=== PATIENT | male | born 1965 | race African-American/Black ===

== ENCOUNTER 2018-06-12 08:19 | Inpatient (IN) | payer OTHER ==
[~2018-06-12] VITALS: Ht 182.9 cm; Wt 98.2 kg
--- NOTE | ~2018-06-12 | EKG ---
[place], [place] ELECTROCARDIOGRAM REPORT NAME: SAVANNA PEREZ UNIT #: [id number] ROOM: 518 DOCTOR: TAMIR DRAFT REPORT BIRTHDATE: [birth year] [facility] Test Date: 2018-06-12 Test Time: 12:14:41 Pat Name: SAVANNA PEREZ Department: Room: 518 1 Gender: M Nutrition Specialist: : [id number] Requested By: JUAN JOSE COLE Order Number: [id number] Reading MD: Patricia Vital MD Measurements Intervals Nesbit Rate: 50 P: 48 [place]: 182 QRS: 69 QRSD: 85 T: 61 QT: 438 QTc: 400 Interpretive Statements Sinus rhythm Baseline wander in lead(s) V1 Electronically Signed On 06-14-2018 11:03:56 PDT by Patricia Vital MD CM:EKGRPT:ELECTROCARDIOGRAM REPORT [id number] JUAN JOSE SULTANA DRAFT REPORT JUAN JOSE COLE DO
[2018-06-12 09:27] LABS: BASO % 0.5 % (0.0-1.0); EOS # 0.1 10*3/uL (0.0-0.4); EOS % 1.3 % (1.0-4.0); HEMATOCRIT 47.4 % (42.0-52.0); HEMOGLOBIN 14.9 g/dl (14.0-18.0); LYMPH # 2.9 10*3/uL (1.3-4.4); LYMPH % 46.8 % (27.0-41.0); MEAN CELL VOLUME 80.6 fl (80.0-94.0); MEAN CORPUSCULAR HGB 25.3 pg (27.0-31.0); MEAN CORPUSCULAR HGB CONC 31.4 g/dl (33.0-37.0); MEAN PLATELET VOLUME 10.3 fl (9.6-12.3); MONO # 0.7 10*3/uL (0.1-1.0); MONO % 11.2 % (3.0-9.0); NEUT # 2.5 10*3/uL (2.3-7.9); PLATELET COUNT AUTOMATED 226 10*3/uL (130-400); RED BLOOD COUNT 5.88 10*6/uL (4.50-5.90); RED CELL DISTRI WIDTH 15.9 % (0-14.5); WHITE BLOOD COUNT 6.2 10*3/uL (4.8-10.8)
[2018-06-12 09:43] LABS: ALBUMIN 3.5 gm/dl (3.1-4.5); ALKALINE PHOSPHATASE 96 U/L (45-117); BUN 12 mg/dl (7-24); CHLORIDE 109 mmol/L (98-107); CREATININE 1.28 mg/dL (0.70-1.30); SGOT/AST 22 IU/L (3-35); SGPT/ALT 45 U/L (12-78); SODIUM 140 mmol/L (136-145); TOTAL PROTEIN 7.4 gm/dL (6.4-8.2)
[2018-06-12 09:44] LABS: ETHYL ALCOHOL < 3.0 mg/dl (<3)
[2018-06-12] MEDS ORDERED: ATARAX,VISTARIL50 MG PO (09:45)
[2018-06-12 10:55] LABS: BILIRUBIN NEGATIVE (NEGATIVE); BLOOD NEGATIVE (NEGATIVE); CLARITY CLEAR (CLEAR); COLOR YELLOW (YELLOW); GLUCOSE NEGATIVE (NEGATIVE); KETONE NEGATIVE (NEGATIVE); LEUKO ESTERASE NEGATIVE (NEGATIVE); NITRITE NEGATIVE (NEGATIVE); PH 5.5 (5.0-9.0); SPECIFIC GRAVITY >= 1.030 (1.005-1.030); UROBILINOGEN 0.2 E.U./dl (0.2-1.0)
[2018-06-12 11:04] LABS: URINE AMPHETAMINES < 1000 (1000ng/ml); URINE BARBITURATES < 200 (200ng/ml); URINE BENZODIAZEPINES < 200 (200ng/ml); URINE CANNABINOIDS (THC) > 50 (50ng/ml); URINE COCAINE > 300 (300ng/ml); URINE METHADONE < 300 (300ng/ml); URINE OPIATES < 300 (300ng/ml)
[2018-06-12 11:13] LABS: URINE PHENCYCLIDINE < 25 (25ng/ml)
[2018-06-12 12:00] VITALS: BP 129/88
[2018-06-12 12:16] LABS: BACTERIA TRACE; MUCOUS 2+; WBC 0-2 wbc/hpf (0-5)
[2018-06-12 16:00] VITALS: BP 140/73
[2018-06-13] VITALS: BP 145/78
[2018-06-13 04:00] VITALS: BP 136/73
[2018-06-13 08:00] VITALS: BP 130/83
[2018-06-13 12:00] VITALS: BP 140/80
[2018-06-13 16:00] VITALS: BP 156/88
[2018-06-13 20:00] VITALS: BP 150/70
[2018-06-14] VITALS: BP 120/80
[2018-06-14 08:00] VITALS: BP 147/77
[2018-06-14 11:14] LABS: ALBUMIN 3.7 gm/dl (3.1-4.5); ALKALINE PHOSPHATASE 104 U/L (45-117); BUN 13 mg/dl (7-24); CHLORIDE 103 mmol/L (98-107); CREATININE 1.18 mg/dL (0.70-1.30); POTASSIUM 4.1 mmol/L (3.5-5.1); SGOT/AST 15 IU/L (3-35); SGPT/ALT 35 U/L (12-78); SODIUM 138 mmol/L (136-145); TOTAL PROTEIN 8.2 gm/dL (6.4-8.2)
[2018-06-14 16:00] VITALS: BP 143/89
[2018-06-14 20:00] VITALS: BP 140/78
[2018-06-15 00:27] VITALS: BP 144/75
[2018-06-15 05:58] LABS: BASO % 0.4 % (0.0-1.0); EOS # 0.1 10*3/uL (0.0-0.4); EOS % 2.3 % (1.0-4.0); HEMATOCRIT 45.9 % (42.0-52.0); HEMOGLOBIN 14.3 g/dl (14.0-18.0); LYMPH # 2.8 10*3/uL (1.3-4.4); LYMPH % 53.8 % (27.0-41.0); MEAN CELL VOLUME 81.4 fl (80.0-94.0); MEAN CORPUSCULAR HGB 25.4 pg (27.0-31.0); MEAN CORPUSCULAR HGB CONC 31.2 g/dl (33.0-37.0); MEAN PLATELET VOLUME 10.7 fl (9.6-12.3); MONO # 0.6 10*3/uL (0.1-1.0); MONO % 10.7 % (3.0-9.0); NEUT # 1.7 10*3/uL (2.3-7.9); NEUT % 32.8 % (47.0-73.0); PLATELET COUNT AUTOMATED 233 10*3/uL (130-400); RED BLOOD COUNT 5.64 10*6/uL (4.50-5.90); RED CELL DISTRI WIDTH 15.3 % (0-14.5); WHITE BLOOD COUNT 5.1 10*3/uL (4.8-10.8)
[2018-06-15 08:00] VITALS: BP 138/78
[2018-06-15 16:00] VITALS: BP 151/87
[2018-06-15 21:08] VITALS: BP 143/81
[2018-06-15 21:17] VITALS: BP 157/84
[2018-06-16 00:36] VITALS: BP 148/75
[2018-06-16 08:00] VITALS: BP 129/76
[2018-06-16 12:00] VITALS: BP 121/72
[2018-06-16 17:13] VITALS: BP 145/73
[2018-06-16 21:11] VITALS: BP 129/72
[2018-06-17] VITALS: BP 106/46; BP 131/63
[2018-06-17 08:00] VITALS: BP 143/70
[2018-06-17 12:00] VITALS: BP 138/72
[2018-06-17 16:35] VITALS: BP 155/82
[2018-06-17 20:44] VITALS: BP 149/86
[2018-06-18 06:29] LABS: BASO % 0.6 % (0.0-1.0); EOS # 0.1 10*3/uL (0.0-0.4); EOS % 2.3 % (1.0-4.0); HEMATOCRIT 45.3 % (42.0-52.0); HEMOGLOBIN 14.1 g/dl (14.0-18.0); LYMPH # 2.4 10*3/uL (1.3-4.4); LYMPH % 45.9 % (27.0-41.0); MEAN CELL VOLUME 80.7 fl (80.0-94.0); MEAN CORPUSCULAR HGB 25.1 pg (27.0-31.0); MEAN CORPUSCULAR HGB CONC 31.1 g/dl (33.0-37.0); MEAN PLATELET VOLUME 10.8 fl (9.6-12.3); MONO # 0.7 10*3/uL (0.1-1.0); MONO % 13.7 % (3.0-9.0); NEUT % 37.3 % (47.0-73.0); PLATELET COUNT AUTOMATED 229 10*3/uL (130-400); RED BLOOD COUNT 5.61 10*6/uL (4.50-5.90); RED CELL DISTRI WIDTH 15.5 % (0-14.5); WHITE BLOOD COUNT 5.3 10*3/uL (4.8-10.8)
[2018-06-18 06:55] LABS: CREATININE 1.09 mg/dL (0.70-1.30)
[2018-06-18 08:00] VITALS: BP 130/87
[2018-06-18] MEDS ORDERED: ROPINIROLE HYD0.5 MG PO (12:19)
[2018-06-18] MEDS ORDERED: FLUDROCORTISON0.1 MG PO (12:19)
[2018-06-18] MEDS ORDERED: ZOFRAN 4 MG ED2 TAB PO (12:19)
== END 2018-06-18 14:22 | disposition home or self-care (01) | DRG 897 ==
LOC: 5E 08:19
PROVIDERS: Internal Medicine; Student in an Organized Health Care Education/Training Program
DX: F11.23 Opioid dependence with withdrawal (principal); E83.51 Hypocalcemia; F17.200 Nicotine dependence, unspecified, uncomplicated; F32.9 Major depressive disorder, single episode, unspecified; F41.9 Anxiety disorder, unspecified; F12.10 Cannabis abuse, uncomplicated; F14.10 Cocaine abuse, uncomplicated; K59.00 Constipation, unspecified; I95.1 Orthostatic hypotension; Z71.6 Tobacco abuse counseling; Z83.3 Family history of diabetes mellitus; Z81.8 Family history of other mental and behavioral disorders